=== PATIENT | male | born 1950 | race Caucasian/White ===

== ENCOUNTER 2017-04-29 12:39 | Emergency (ER) | payer OTHER ==
[2017-04-29 12:45] VITALS: BP 108/76; PULSE 81; RESP 18; TEMP 97.9; O2SAT 94
--- NOTE | 2017-04-29 13:04 | EDPHY ---
H & P Stated Complaint: root canal and dental work mon/monday/increased l lower jaw swelling Time Seen by Provider: 04/29/17 12:51 HPI/ROS: Chief Complaint: Lower jaw swelling HPI: 66-year-old male had a temporary crown placed on Monday after a failed root canal. He was not started on antibiotics. Since that time he has had increasing pain and swelling in his lower jaw. No fevers or chills. No difficulty swallowing. Some mild headache. Mild nausea but no vomiting. He has not been in contact with his dentist. ROS: 10 point Review of Systems is negative except as noted in the HPI. PMH: Type 2 diabetes Social History: No smoking, no alcohol, no recreational drug use Family History: non-contributory Physical Exam: General: Awake, alert, no acute distress Mouth: Patient has moderate gingival tenderness and swelling along the lateral margin of his right lower mandible. There is moderate dental tenderness to percussion. There is no fluctuance or pointing. There is no submandibular tenderness or swelling. No trismus Neck: No masses or soft tissue swelling. No lymphadenopathy, Skin: No rash - Personal History Current Tetanus/Diphtheria Vaccine: Yes - Medical/Surgical History Hx Asthma: No Hx Chronic Respiratory Disease: No Hx Diabetes: Yes Hx Cardiac Disease: No Hx Renal Disease: No Hx Cirrhosis: No Hx Alcoholism: No Hx HIV/AIDS: No Hx Splenectomy or Spleen Trauma: No Other PMH: med hx-type 2 diabetes,cholesterol, htn. surg-rt shoulder,hernia- inguinal,left thumb - Social History Smoking Status: Never smoked Constitutional: Initial Vital Signs Temperature (C) 36.6 C 04/29/17 12:43 Heart Rate 81 04/29/17 12:43 Respiratory Rate 18 04/29/17 12:43 Blood Pressure 108/76 04/29/17 12:43 O2 Sat (%) 94 04/29/17 12:43 O2 Delivery Mode Room Air Allergies/Adverse Reactions: ceftriaxone [Ceftriaxone] Adverse Reaction (Verified 04/29/17 12:41) Penicillins Adverse Reaction (Verified 04/29/17 12:41) influenza injection Allergy (Severe, Uncoded 04/19/14 21:37) Anaphylaxis Home Medications: Medication Instructions Recorded Aspirin [Aspirin 325 mg (OTC)] 01/20/12 Ezetimibe [Zetia 10 MG (RX)] 10 mg PO 01/20/12 Fenofibrate [Tricor] 01/20/12 Pioglitazone HCl [Actos] 45 mg PO 01/20/12 Valsartan [Diovan 160MG (RX)] 01/20/12 metFORMIN HCL [Glucophage 1000 mg] 01/20/12 Clindamycin HCl [Clindamycin] 300 mg PO TID #30 cap 04/29/17 Vicodin 5-300 mg Tablet 04/29/17 Medical Decision Making ED Course/Re-evaluation: Patient has dental infection status post a temporary crown placement. He is penicillin cephalosporin allergic. Will start him on clindamycin. Will follow up with dentist on Monday. Departure - Departure Disposition: Home, Routine, Self-Care Clinical Impression: Dental infection Condition: Good Instructions: Dental Abscess (ED) Additional Instructions: Follow up with your dentist on Monday. Return to the emergency department for increasing swelling, difficulty swallowing, difficulty breathing, or any other concerns. Prescriptions: Clindamycin HCl [Clindamycin] 300 mg PO TID #30 cap
== END 2017-04-29 13:19 | disposition home or self-care (01) ==
DX: K04.7 Periapical abscess without sinus (principal); E11.9 Type 2 diabetes mellitus without complications; I10 Essential (primary) hypertension; Z79.82 Long term (current) use of aspirin; Z79.84 Long term (current) use of oral hypoglycemic drugs

== ENCOUNTER → 2018-05-03 | Outpatient (CLI) | payer OTHER | LOC: CIMAGING 13:16 | PROVIDERS: ATTEND Family Medicine | DX: S22.41XA Multiple fractures of ribs, right side, initial encounter for closed fracture (principal) | CPT/HCPCS: 71100-PO ==